=== PATIENT | female | born 1965 | race Caucasian/White ===

== ENCOUNTER 2024-04-17 13:53 | Outpatient (CLI) | payer BC, MEDICAID | END 2024-04-17 23:59 | disposition home or self-care (01) | LOC: MRI 13:53 | PROVIDERS: ATTEND Podiatrist Foot & Ankle Surgery | DX: M19.072 Primary osteoarthritis, left ankle and foot (principal); M79.672 Pain in left foot; M21.42 Flat foot [pes planus] (acquired), left foot; M77.32 Calcaneal spur, left foot; M25.775 Osteophyte, left foot | CPT/HCPCS: 73721 ==